=== PATIENT | female | born 1965 | race Caucasian/White ===

== ENCOUNTER 2018-05-26 22:40 | Emergency (ER) | payer MEDICAID ==
[2018-05-26] MEDS ORDERED: KETOROLAC 30 MG/ML VIAL IVP ONE (22:57)
[2018-05-26] MEDS ORDERED: ONDANSETRON HCL IV 4 MG/2 ML VIAL IVP ONE (22:57)
[2018-05-26] MEDS ORDERED: 0.9 % SODIUM CHLORIDE 1000ML 1,000 ML IV SCH (23:00)
--- NOTE | 2018-05-26 23:01 | Emergency Department Record ---
History of Present Illness - General Chief complaint: Flank Pain Stated complaint: LOWER BACKPAIN BOTH SIDES Time Seen by Provider: 05/26/18 22:42 Source: Patient Mode of Arrival: Ambulatory Limitations: No limitations - History of Present Illness Initial comments: 52 yo female presents to ED for evaluation of bilateral flank pain symptoms and dysuria symptoms that began 5-6 days ago. Patient denies fevers, chills, or recent illness, denies recent fall or injury to the back. Patient denies taking anything for her symptoms today, and denies health problems at her baseline. Patient denies history of previous symptoms, and denies history of kidney stones. MD Complaint: Dysuria Onset/Timin -: Days(s) Radiation: L flank, R flank Severity: Moderate Quality: Aching Consistency: Constant Improves with: None Worsens with: None Patient : No Associated Symptoms: Dysuria, Nausea/vomiting - Related Data Previous Rx's Medication Instructions Recorded Cyclobenzaprine HCl [Flexeril] 10 mg PO TID #15 tablet 12/16/14 Naproxen [Naprosyn] 500 mg PO BID #14 tablet. 10/01/16 Acetaminop W/ Codeine 300/30Mg 1 - 2 tab PO Q6H #20 tab 10/03/16 [Tylenol #3] Diazepam [Valium] 5 mg PO Q8H PRN #9 tab 05/27/18 Ibuprofen [Motrin 600Mg] 600 mg PO Q6H PRN #30 tablet 05/27/18 Allergies Allergy/AdvReac Type Severity Reaction Status Date / Time acetaminophen [From Vicodin] AdvReac HYPERSENSIT Verified 12/16/14 16:08 IVITY hydrocodone bitartrate AdvReac HYPERSENSIT Verified 12/16/14 16:08 [From Vicodin] IVITY Review of Systems Constitutional: Denies: Chills, Fever, Malaise, Night sweats Eyes: Denies: Eye discharge, Eye pain ENT: Denies: Congestion, Ear pain, Epistaxis Respiratory: Denies: Cough, Dyspnea Cardiovascular: Denies: Chest pain, Dyspnea on exertion Endocrine: Denies: Fatigue, Heat or cold intolerance Gastrointestinal: Reports: Nausea. Denies: Abdominal pain, Vomiting Genitourinary: Reports: Dysuria. Denies: Incontinence, Retention Musculoskeletal: Reports: Back pain. Denies: Arthralgia, Gout, Joint swelling Skin: Denies: Bruising, Change in color Neurological: Denies: Abnormal gait, Confusion, Headache, Seizure Psychiatric: Denies: Anxiety Hematological/Lymphatic: Denies: Anemia, Blood Clots Past Medical History - SOCIAL HISTORY Smoking Status: Current every day smoker - RESPIRATORY Hx Respiratory Disorders: No - CARDIOVASCULAR Hx Cardio Disorders: No - NEURO Hx Neuro Disorders: No - GI Hx GI Disorders: Yes Hx Reflux: Yes - Hx Genitourinary Disorders: No - ENDOCRINE Hx Diabetes: No Hx Thyroid Disease: No - MUSCULOSKELETAL Hx Arthritis: Yes - PSYCH Hx Psych Problems: Yes Hx Anxiety: Yes - HEMATOLOGY/ONCOLOGY Hx Hematology/Oncology Disorders: Yes Hx Anemia: Yes Family Medical History Family Hx Comment (NOT TO BE USED IN PLACE OF ITEMS BELOW): Mom passed from ALS Hx Diabetes: Grandparents Physical Exam - General General Appearance: Alert, Oriented x3, Cooperative, Moderate distress Limitations: No limitations - Head Head exam: Atraumatic, Normocephalic, Normal inspection Head exam detail: negative: Abrasion, Contusion, Stiles's sign, General tenderness, Hematoma, Laceration - Eye Eye exam: Normal appearance. negative: Conjunctival injection, Periorbital swelling, Periorbital tenderness, Scleral icterus - ENT Ear exam: negative: Auricular hematoma, Auricular trauma Nasal Exam: negative: Active bleeding, Discharge, Dried blood, Foreign body Mouth exam: negative: Drooling, Laceration, Muffled voice, Tongue elevation - Neck Neck exam: Normal inspection. negative: Meningismus, Tenderness - Respiratory Respiratory exam: Normal lung sounds bilaterally. negative: Rales, Respiratory distress, Rhonchi, Stridor - Cardiovascular Cardiovascular Exam: Regular rate, Normal rhythm, Normal heart sounds - GI/Abdominal GI/Abdominal exam: Soft. negative: Rebound, Rigid, Tenderness - Rectal Rectal exam: Deferred - exam: Deferred - Extremities Extremities exam: Normal inspection. negative: Calf tenderness, Pedal edema, Tenderness - Back Back exam: Reports: CVA tenderness (R), CVA tenderness (L) - Neurological Neurological exam: Alert, Normal gait, Oriented X3 - Psychiatric Psychiatric exam: Normal affect, Normal mood - Skin Skin exam: Normal color. negative: Abrasion Type of lesion: negative: abrasion Course - Reevaluation(s) Reevaluation #1: 05/26/18 23:48 Laboratory studies were reviewed and are grossly unremarkable for an acute process: UA reviewed: 0-2 RBCs No WBCs 16-20 Epithelial cells 1+ Amorphus sediment Reevaluation #2: 05/27/18 00:03 CT Abdomen and Pelvis: Multiple non-obstructing stones left kidney No distal ureteral stones are visualized No hydronephrosis Patient was reassessed, reports that she is feeling much improved following Toradol administration. Patient was updated on all results, appears stable for discharge at this time with Motrin 600 and Valium for her bilateral back pain symptoms. Patient agrees with the plan of care as discussed. Medical Decision Making - Lab Data Result diagrams: 05/26/18 23:08 05/26/18 23:08 Disposition Disposition: Discharge Clinical Impression: Flank pain, acute Disposition: Home, Self-Care Condition: (2) Stable Instructions: Flank Pain (ED) Additional Instructions: Return to ED if your symptoms worsen or if you have any concerns. Motrin 600 mg, Valium 5 mg as directed. Follow-up with your family doctor in 1-3 days as directed. Prescriptions: Diazepam [Valium] 5 mg PO Q8H PRN #9 tab PRN Reason: Spasms Ibuprofen [Motrin 600Mg] 600 mg PO Q6H PRN #30 tablet PRN Reason: Pain - Mild To Moderate (1-7) Forms: Patient Portal Access Time of Disposition: 00:05 Quality - Quality Measures Quality Measures: N/A - Blood Pressure Screening Does Patient Have Any of the Following: No Blood Pressure Classification: Hypertensive Reading Systolic Measurement: 171 Diastolic Measurement: 105 Screening for High Blood Pressure: < First Hypertensive BP, F/U Documented > [ G8950] First Hypertensive Follow-up Interventions: Referral to alternative/primary care provider.
[2018-05-26 23:19] LABS: HEMATOCRIT 50.7 % (35.0-47.0); HEMOGLOBIN 17.6 gm/dl (11.6-16.0); MEAN CELL VOLUME 97.7 fl (81-97); MEAN CORPUSCULAR HEMOGLOBIN 33.9 pg (27-33); MEAN CORPUSCULAR HGB CONC 34.7 g/dl (32-36); MEAN PLATELET VOLUME 9.8 fl (7.4-10.4); PLATELET COUNT 236 K/uL (130-400); RED BLOOD COUNT 5.19 M/uL (3.80-5.40); RED CELL DISTRIBUTION WIDTH 12.8 % (11.5-14.5); URINE APPEARANCE CLEAR; URINE BILIRUBIN NEGATIVE (NEGATIVE); URINE BLOOD SMALL (NEGATIVE); URINE COLOR YELLOW; URINE GLUCOSE (UA) NEGATIVE (NEGATIVE); URINE KETONE NEGATIVE (NEGATIVE); URINE LEUKOCYTE ESTERASE NEGATIVE (NEGATIVE); URINE NITRITE NEGATIVE (NEGATIVE); URINE PROTEIN NEGATIVE (NEGATIVE); URINE UROBILINOGEN 0.2 E.U./dL (0.20 - 1.00); WHITE BLOOD COUNT W/O DIFF 4.7 K/uL (4.2-12.2)
[2018-05-26 23:26] LABS: URINE AMORPHOUS SEDIMENT 1+; URINE EPITHELIAL CELLS 16 - 20 (FEW); URINE RBC 0 - 2 (NONE SEEN); URINE WBC NONE SEEN (0-2/hpf)
[2018-05-26 23:32] LABS: BLOOD UREA NITROGEN 8 mg/dL (6-20); CREATININE 0.5 mg/dL (0.5-0.9); EST GLOMERULAR FILTRATION RATE > 60 mL/min; TOTAL PROTEIN 7.2 g/dL (6.6-8.7)
[2018-05-26 23:34] LABS: GLUCOSE,RANDOM 90 mg/dL (74-109)
[2018-05-26 23:37] LABS: ALB/GLOB RATIO 1.5 (1.1-1.8); ALBUMIN 4.3 g/dL (4.0-5.0); ALKALINE PHOSPHATASE 82 U/L (35-104); ALT/SGPT 17 U/L (<33); AST/SGOT 16 U/L (10.0-35.0)
--- NOTE | 2018-05-28 10:38 | CT SCAN REPORT ---
EXAM: CT SCAN OF THE ABDOMEN AND PELVIS WITHOUT CONTRAST HISTORY: BILATERAL FLANK PAIN AND DYSURIA. TECHNIQUE: Standard CT imaging of the abdomen and pelvis was performed without contrast. Comparison: None. FINDINGS: The lung bases are clear. The liver, gallbladder, biliary tree, pancreas and adrenal glands are normal. The spleen contains multiple calcified granulomas, but is otherwise unremarkable. There are four small nonobstructing stones within the left kidney, the largest of which measures 3 mm in maximal dimension. There is no obstructing calculus or hydronephrosis. The right kidney is unremarkable. Atherosclerotic changes are present within the aorta with no aneurysm. There is no retroperitoneal lymphadenopathy. The stomach is normal in appearance. The large and small bowel loops are normal. There are no focal inflammatory changes. There is no pneumoperitoneum or ascites. The uterus is surgically absent. The urinary bladder is normal in appearance. The abdominal wall is unremarkable. Degenerative changes are present within the spine. There are no acute osseous abnormalities. IMPRESSION: 1. NO ACUTE INTRAABDOMINAL PATHOLOGY. 2. NONOBSTRUCTING LEFT INTRARENAL CALCULI. 3. OLD GRANULOMATOUS DISEASE. 4. STATUS POST HYSTERECTOMY. JOB NUMBER: [id number] [facility]
== END 2018-05-27 00:14 | disposition home or self-care (01) ==
LOC: ER 22:40
DX: R10.31 Right lower quadrant pain (principal); R10.32 Left lower quadrant pain; R11.2 Nausea with vomiting, unspecified; R30.0 Dysuria; F17.210 Nicotine dependence, cigarettes, uncomplicated
CPT/HCPCS: 99284 ×2; 96374; 96375; 96361; 80053; 81001; 85027; 74176; J1885; J2405; J7030

== ENCOUNTER 2018-06-04 09:06 | Emergency (ER) | payer SELFPAY ==
[2018-06-04 09:39] LABS: URINE APPEARANCE CLEAR; URINE BILIRUBIN NEGATIVE (NEGATIVE); URINE BLOOD SMALL (NEGATIVE); URINE COLOR YELLOW; URINE GLUCOSE (UA) NEGATIVE (NEGATIVE); URINE KETONE NEGATIVE (NEGATIVE); URINE LEUKOCYTE ESTERASE NEGATIVE (NEGATIVE); URINE NITRITE NEGATIVE (NEGATIVE); URINE PROTEIN NEGATIVE (NEGATIVE); URINE UROBILINOGEN 0.2 E.U./dL (0.20 - 1.00)
[2018-06-04] MEDS ORDERED: KETOROLAC 30 MG/ML VIAL IM ONE (09:44)
[2018-06-04] MEDS ORDERED: ACETAMINOPHEN 1,000 MG/100 ML BTL IVPB ONE (09:45)
[2018-06-04 09:47] LABS: URINE WBC NONE SEEN (0-2/hpf)
--- NOTE | 2018-06-04 09:51 | Emergency Department Record ---
History of Present Illness - General Chief complaint: Flank Pain Stated complaint: FLANK PAIN/RECHECK Time Seen by Provider: 06/04/18 09:09 Source: Patient Mode of Arrival: Ambulatory Limitations: No limitations - History of Present Illness Initial comments: The patient is here due to flank pain for 2 weeks. She was in the ED 9 days ago and had a neg workup including lab work, a UA and a CT scan. Now she states the pain is no better and she is very constipated from the medicines. She denies any nausea, vomiting, fever, diarrhea, or dysuria. The pain in her back is again bilateral in the mid to lower back and does not radiate to her legs. There are no symptoms of leg numbness, weakness, or any bowel or bladder issues. MD Complaint: Other Onset/Timin -: Week(s) Severity: Moderate Severity scale (1-10): 10 Quality: Aching, Cramping Consistency: Constant, Intermittent Improves with: None Worsens with: None - Related Data Previous Rx's Medication Instructions Recorded Cyclobenzaprine HCl [Flexeril] 10 mg PO TID #15 tablet 12/16/14 Diazepam [Valium] 5 mg PO Q8H PRN #9 tab 05/27/18 Ibuprofen [Motrin 600Mg] 600 mg PO Q6H PRN #30 tablet 05/27/18 Cyclobenzaprine HCl [Flexeril] 10 mg PO TID PRN #20 tablet 06/04/18 Naproxen [Naprosyn] 250 mg PO BID #14 tablet 06/04/18 Allergies Allergy/AdvReac Type Severity Reaction Status Date / Time hydrocodone bitartrate AdvReac HYPERSENSIT Verified 06/04/18 09:21 [From Vicodin] IVITY Travel Screening - Travel/Exposure Within Last 30 Days Have you traveled within the last 30 days?: No - Travel/Exposure Within Last Year Have you traveled outside the [place] in the last year?: No - Additonal Travel Details Have you been exposed to anyone with a communicable illness?: No - Travel Symptoms Symptom Screening: None Review of Systems Constitutional: Denies: Chills, Fever Eyes: Denies: Eye discharge ENT: Denies: Congestion Respiratory: Denies: Cough, Dyspnea Past Medical History - SOCIAL HISTORY Smoking Status: Current every day smoker Alcohol Use: Occasional Drug Use: None - RESPIRATORY Hx Respiratory Disorders: No - CARDIOVASCULAR Hx Cardio Disorders: No - NEURO Hx Neuro Disorders: No - GI Hx GI Disorders: Yes Hx Reflux: Yes - Hx Genitourinary Disorders: Yes Hx Kidney Stones: Yes - ENDOCRINE Hx Diabetes: No Hx Thyroid Disease: No - MUSCULOSKELETAL Hx Arthritis: Yes - PSYCH Hx Psych Problems: Yes Hx Anxiety: Yes - HEMATOLOGY/ONCOLOGY Hx Hematology/Oncology Disorders: Yes Hx Anemia: Yes Family Medical History Any Significant Family History?: Yes Family Hx Comment (NOT TO BE USED IN PLACE OF ITEMS BELOW): Mom passed from ALS Hx Diabetes: Grandparents Physical Exam - General General Appearance: Alert, Oriented x3, Cooperative, No acute distress - Head Head exam: Atraumatic, Normocephalic, Normal inspection - Eye Eye exam: Normal appearance, PERRL - Neck Neck exam: Normal inspection, Full ROM. negative: Tenderness - Respiratory Respiratory exam: Normal lung sounds bilaterally. negative: Respiratory distress - Cardiovascular Cardiovascular Exam: Regular rate, Normal rhythm, Normal heart sounds - GI/Abdominal GI/Abdominal exam: Soft, Normal bowel sounds, Tenderness (There is mild diffuse tenderness in all 4 quads.). negative: Guarding, Rebound, Rigid - Rectal Rectal exam: Hemorrhoids (mild.), Normal rectal tone. negative: Decreased rectal tone, Fecal impaction, Normal inspection - Extremities Extremities exam: Normal inspection, Full ROM, Normal capillary refill. negative: Tenderness - Back Back exam: Reports: Normal inspection, Muscle spasm, Paraspinal tenderness ( There is very reproducible tenderness to palpation to the bilateral lower thoracic and upper lumbar paraspinal areas. ). Denies: Vertebral tenderness Image of Body Front/Back: 1 - Area of pain and tenderness. 2 - Area of pain and tenderness. - Neurological Neurological exam: Alert, Normal gait, Oriented X3, Reflexes normal. negative: Abnormal gait, Altered, Motor sensory deficit Course Vital Signs 06/04/18 09:14 Temperature 97.9 F Pulse Rate 90 Respiratory 20 Rate Blood Pressure 165/98 Pulse Ox 99 - Reevaluation(s) Reevaluation #1: The patient denies any significant AP at this time but is still having the significant back pain with any movement. Bending and twisting do reproduce the pain. She again denies any leg numbness, or tingling or weakness. She is most concerned about not having a BM for almost a week so I did order an abdominal CT with contrast but the patient refused. I explained to her that by NOT ordering the CT I cannot fully explain the AP or constipation. The patient understands the risks of refusing and accepts the risks. We will give her a bottle of Mg Citrate for home and she is to see her PCP for recheck later this week. 06/04/18 10:56 Medical Decision Making - Lab Data Result diagrams: 06/04/18 09:50 06/04/18 09:50 Disposition Disposition: Discharge Clinical Impression: Flank pain, acute Instructions: Flank Pain (ED) Additional Instructions: Please stop the Motrin and start the Naprosyn and Flexeril. Please drink 1/2 of the bottle of Mg Citrate this AM and 1/2 tonight. Please also use an OTC laxative. Please see your family doctor for recheck later this week and also obtain a referral for a Colonoscopy. Return to the ER for any worsening symptoms , back pain, leg numbness, weakness, or abdominal pain. Prescriptions: Cyclobenzaprine HCl [Flexeril] 10 mg PO TID PRN #20 tablet PRN Reason: Pain Naproxen [Naprosyn] 250 mg PO BID #14 tablet Forms: Patient Portal Access Time of Disposition: 11:05 Quality - Quality Measures Quality Measures: N/A - Blood Pressure Screening View Details: Yes Does Patient Have Any of the Following: No Blood Pressure Classification: Hypertensive Reading Systolic Measurement: 165 Diastolic Measurement: 98 Screening for High Blood Pressure: < First Hypertensive BP, F/U Documented > [ G8950] First Hypertensive Follow-up Interventions: Referral to alternative/primary care provider.
[2018-06-04] MEDS ORDERED: KETOROLAC 30 MG/ML VIAL IVP ONE (09:57)
[2018-06-04 10:04] LABS: BASO % 0.4 % (0-6); EOS % 3.9 % (0-6); GRAN % 69.5 % (47-80); HEMATOCRIT 48.4 % (35.0-47.0); HEMOGLOBIN 17.1 gm/dl (11.6-16.0); LYMPH % 18.9 % (16-45); MEAN CELL VOLUME 96.2 fl (81-97); MEAN CORPUSCULAR HEMOGLOBIN 33.9 pg (27-33); MEAN CORPUSCULAR HGB CONC 35.3 g/dl (32-36); MEAN PLATELET VOLUME 9.6 fl (7.4-10.4); MONO % 7.3 % (0-9); PLATELET COUNT 213 K/uL (130-400); RED BLOOD COUNT 5.03 M/uL (3.80-5.40); RED CELL DISTRIBUTION WIDTH 12.5 % (11.5-14.5); WHITE BLOOD COUNT W/O DIFF 4.8 K/uL (4.2-12.2)
[2018-06-04 10:14] LABS: BLOOD UREA NITROGEN 6 mg/dL (6-20); CREATININE 0.4 mg/dL (0.5-0.9); EST GLOMERULAR FILTRATION RATE > 60 mL/min; TOTAL PROTEIN 6.8 g/dL (6.6-8.7)
[2018-06-04 10:16] LABS: GLUCOSE,RANDOM 126 mg/dL (74-109)
[2018-06-04 10:19] LABS: ALB/GLOB RATIO 1.4 (1.1-1.8); ALKALINE PHOSPHATASE 73 U/L (35-104); ALT/SGPT 12 U/L (<33); AST/SGOT 13 U/L (10.0-35.0)
[2018-06-04] MEDS ORDERED: MAGNESIUM CITRATE 296 ML BTL PO ONE (10:56)
== END 2018-06-04 11:11 | disposition home or self-care (01) ==
LOC: ER 09:06
DX: M54.5 Low back pain (principal); M54.6 Pain in thoracic spine; K59.03 Drug induced constipation; F17.210 Nicotine dependence, cigarettes, uncomplicated
CPT/HCPCS: 99284 ×2; 96365; 96375; 83690; 85025; 80053; 81001; J1885